=== PATIENT | male | born 1940 | race Caucasian/White ===

== ENCOUNTER 2016-11-26 21:21 | Emergency (ER) | payer MEDICARE, MEDICAID ==
--- NOTE | 2016-11-26 21:27 | ED Physician Chart ---
Chief Complaint/HPI - Patient Information Date Seen:: 11/26/16 Time Seen:: 21:26 Chief Complaint:: EtOH intoxication History of Present Illness:: 76-year-old male, well-known to this emergency room and other local emergency departments in the area, brought in by EMS with acute, mild to moderate, EtOH intoxication that was discovered about 20 minutes prior to arrival. Patient was loitering in the front of the grocery store. Has associated increased hunger. Allergies:: Allergies Allergy/AdvReac Type Severity Reaction Status Date / Time No Known Allergies Allergy Verified 05/12/16 19:57 Historian:: Patient, EMS Review:: Nurse's Note Reviewed, EMS run form Reviewed Review of Systems - Review of Systems Other: Complete system review otherwise unremarkable except as noted in HPI. Past Medical History - Past Medical History Past Medical History: No significant medical hx Family History: None Social History: Non Smoker, Alcohol, Illicit Drug Use, Homeless Surgical History: None Psychiatricy History: None Medication: None Family Medical History - Family Member Mother History Unknown: Yes Physical Exam - Physical Examination Other:: INITIAL VITAL SIGNS: Reviewed by me GENERAL: Alert and interactive. Disheveled. HEAD: Head is normocephalic and atraumatic EYES: EOMI. . No scleral icterus. No conjunctival injection ENT: Moist mucous membranes. NECK: Supple. No masses. Full range of motion RESPIRATORY: No tachypnea. Clear breath sounds bilaterally. No wheezing, rales, or rhonchi CV: Regular rate and rhythm. No murmurs, rubs, or gallops ABDOMEN: Soft, non-distended, non-tender. No guarding. No rebound. No masses. EXTREMITIES: No deformity. No cyanosis. No edema. SKIN: Warm and dry. No obvious rashes. NEUROLOGIC: Alert and oriented. Face is symmetric. Speech is normal. Moves all extremities equally. Motor and sensory distally intact. ED Septic Shock - . Is Septic Shock (SBP<90, OR Lactate>4 mmol\L) present?: No Reassessment (Disposition) - Reassessment Reassessment:: The patient's blood pressure was elevated (>120/80) but appears stable without evidence of hypertensive emergency or urgency. The patient was counseled about the risks hypertension urged to pursue outpatient monitoring and therapy within a week with her primary care physician. Patient was alert and oriented 4. He was fed. He was ambulating without any obvious gait abnormalities. His noted to be walking to and from the restroom many times any gait abnormalities. Patient ate a full meal. Wanted to leave. Discharged. Follow-up with [facility] clinic or PCP 1-2 days. Gave return to ER precautions. Patient says he understands and agrees with the plan. - Diagnosis Diagnosis:: EtOH intoxication Pre-hypertension - Aftercare/Follow up Instructions Aftercare/Follow-Up Instructions:: Counseled pt regarding lab results/diagnosis & need follow up, Refer to Discharge Instructions - Patient Disposition Discharge/Transfer:: Home Time:: 21:32 Condition at Disposition:: Improved ED Discharge Plan - Patient Disposition Admit/Discharge/Transfer: PT DISCHARGED HOME Condition at Disposition: Improved Instructions: Alcohol Intoxication, [id number]
== END 2016-11-26 22:09 | disposition home or self-care (01) ==
LOC: ER 21:21
DX: F10.129 Alcohol abuse with intoxication, unspecified (principal); Z59.0 Homelessness
CPT/HCPCS: Z7502

== ENCOUNTER 2016-12-13 21:36 | Emergency (ER) | payer MEDICARE, MEDICAID ==
--- NOTE | 2016-12-13 21:41 | ED Physician Chart ---
Chief Complaint/HPI - Patient Information Date Seen:: 12/13/16 Time Seen:: 21:37 Chief Complaint:: alcohol intoxication History of Present Illness:: 36-year-old male well known to this emergency department another local emergency departments brought in by EMS with acute, moderate, alcohol intoxication. Has associated loitering in public. History limited patient is somewhat uncooperative History provided by EMS and EMS run sheet Allergies:: Allergies Allergy/AdvReac Type Severity Reaction Status Date / Time No Known Allergies Allergy Verified 11/26/16 21:44 Historian:: Patient, EMS Review:: Nurse's Note Reviewed, EMS run form Reviewed, Transfer documents Reviewed Review of Systems - Review of Systems Other: Complete system review otherwise unremarkable except as noted in HPI. Past Medical History - Past Medical History Past Medical History: No significant medical hx Family History: None Social History: Non Smoker, Alcohol, No Drug Use, Homeless Surgical History: None Psychiatricy History: None Medication: None Family Medical History - Family Member Mother History Unknown: Yes Physical Exam - Physical Examination Other:: INITIAL VITAL SIGNS: Reviewed by me GENERAL: Alert and interactive, mostly uncooperative. No acute distress HEAD: Head is normocephalic and atraumatic EYES: EOMI. . No scleral icterus. No conjunctival injection ENT: Moist mucous membranes. NECK: Supple. No masses. Full range of motion RESPIRATORY: No tachypnea. Clear breath sounds bilaterally. No wheezing, rales, or rhonchi CV: Regular rate and rhythm. No murmurs, rubs, or gallops ABDOMEN: Soft, non-distended, non-tender. No guarding. No rebound. No masses. EXTREMITIES: No deformity. No cyanosis. No edema. SKIN: Warm and dry. No obvious rashes. NEUROLOGIC: Alert and oriented. Face is symmetric. Speech is normal. Moves all extremities equally. Motor and sensory distally intact. ED Septic Shock - . Is Septic Shock (SBP<90, OR Lactate>4 mmol\L) present?: No Reassessment (Disposition) - Reassessment Reassessment:: The patient's blood pressure was elevated (>120/80) but appears stable without evidence of hypertensive emergency or urgency. The patient was counseled about the risks hypertension urged to pursue outpatient monitoring and therapy within a week with her primary care physician. Patient initially brought in for alcohol intoxication and loitering in public. Patient has been seen here many times typically the patient will leave and won' t sign any paperwork when he leaves. Decided that he's done being in the emergency department. This time was no different. Patient ambulated to and from from restroom without any gait abnormalities. Discussed with patient to follow-up with [facility] clinic. Gave return to ER precautions. Patient understands and agrees the plan. Reassessment Condition:: Improved - Diagnosis Diagnosis:: EtOH intoxication Elevated blood pressure without the diagnosis of hypertension - Aftercare/Follow up Instructions Aftercare/Follow-Up Instructions:: Counseled pt regarding lab results/diagnosis & need follow up, Refer to Discharge Instructions - Patient Disposition Discharge/Transfer:: Home Condition at Disposition:: Improved ED Discharge Plan - Patient Disposition Admit/Discharge/Transfer: PT DISCHARGED HOME Condition at Disposition: Improved Instructions: Alcohol Intoxication, [id number]
== END 2016-12-14 03:30 | disposition home or self-care (01) ==
LOC: ER 21:36
DX: F10.129 Alcohol abuse with intoxication, unspecified (principal); R03.0 Elevated blood-pressure reading, without diagnosis of hypertension; Z59.0 Homelessness
CPT/HCPCS: Z7502

== ENCOUNTER 2016-12-23 13:50 | Emergency (ER) | payer MEDICARE, MEDICAID ==
--- NOTE | 2016-12-23 13:56 | ED Physician Chart ---
Chief Complaint/HPI - Patient Information Date Seen:: 12/23/16 Time Seen:: 13:50 Chief Complaint:: EtOH intoxication History of Present Illness:: 76-year-old male brought in by EMS, well known to this emergency department and another local emergency departments, brought in with acute, mild to moderate, alcohol intoxication since 30 minutes prior to arrival. Patient had associated loitering on private property. Patient was loitering in front of a business, business labor relations worker called police. Allergies:: Allergies Allergy/AdvReac Type Severity Reaction Status Date / Time No Known Allergies Allergy Verified 12/13/16 21:41 Historian:: Patient, EMS Review:: Nurse's Note Reviewed, EMS run form Reviewed Review of Systems - Review of Systems Other: Complete system review otherwise unremarkable except as noted in history of present illness. Past Medical History - Past Medical History Past Medical History: Other (alcohol abuse) Family History: None Social History: Non Smoker, Alcohol, No Drug Use, Homeless Surgical History: None Psychiatricy History: None Medication: None Family Medical History - Family Member Mother History Unknown: Yes Ethnicity: Physical Exam - Physical Examination Other:: INITIAL VITAL SIGNS: Reviewed by me GENERAL: Alert and interactive. Disheveled. No acute distress HEAD: Head is normocephalic and atraumatic EYES: EOMI. PERRL. No scleral icterus. No conjunctival injection ENT: Moist mucous membranes. NECK: Supple. No masses. Full range of motion RESPIRATORY: No tachypnea. Clear breath sounds bilaterally. No wheezing, rales, or rhonchi CV: Regular rate and rhythm. No murmurs, rubs, or gallops ABDOMEN: Soft, non-distended, non-tender. No guarding. No rebound. No masses. EXTREMITIES: No deformity. No cyanosis. No edema. SKIN: Warm and dry. No obvious rashes. NEUROLOGIC: Alert and oriented. Face is symmetric. Speech is normal. Moves all extremities equally. Motor and sensory distally intact. ED Septic Shock - . Is Septic Shock (SBP<90, OR Lactate>4 mmol\L) present?: No Reassessment (Disposition) - Reassessment Reassessment:: This patient is ambulating to and from the restroom and throughout the emergency department without any gait abnormalities. He received Zofran for nausea. Also drank a Coca-Cola. At that point the patient decided he was finished with his emergency department stay and was relieved. There was no appreciable emergent medical condition that needed treatment at that point. Patient was discharged. Follow up in the free clinic or with a primary care physician within one to 2 days was advised. Return to ER precautions are given. The patient gestured that he understand and agree with the plan. Reassessment Condition:: Improved - Diagnosis Diagnosis:: Alcohol abuse Alcoholic gastritis Elevated blood pressure without the diagnosis hypertension - Aftercare/Follow up Instructions Aftercare/Follow-Up Instructions:: Counseled pt regarding lab results/diagnosis & need follow up, Refer to Discharge Instructions - Patient Disposition Discharge/Transfer:: Home Time:: 14:02 Condition at Disposition:: Improved ED Discharge Plan - Patient Disposition Admit/Discharge/Transfer: PT DISCHARGED HOME Condition at Disposition: Improved Instructions: Alcohol Problems
== END 2016-12-23 15:04 | disposition home or self-care (01) ==
LOC: ER 13:50
DX: K29.20 Alcoholic gastritis without bleeding (principal); F10.10 Alcohol abuse, uncomplicated; R03.0 Elevated blood-pressure reading, without diagnosis of hypertension; Z59.0 Homelessness
CPT/HCPCS: 99283; Q0162; Z7502

== ENCOUNTER 2016-12-25 17:49 | Emergency (ER) | payer MEDICARE, MEDICAID ==
--- NOTE | 2016-12-25 18:36 | ED Physician Chart ---
Chief Complaint/HPI - Patient Information Date Seen:: 12/25/16 Time Seen:: 18:34 Chief Complaint:: etoh History of Present Illness:: pt brought in for public intoxication. denies acute injury or illness. he is a chronic etohic well known to this and local er's. he usually elopes before deluna is complete. ortiz can give me no explanation as to why he is still drinking so much/often. he speaks mainly omani. no si, no hi. Allergies:: Allergies Allergy/AdvReac Type Severity Reaction Status Date / Time No Known Allergies Allergy Verified 12/13/16 21:41 Vitals:: Vital Signs - 8 hr 12/25/16 18:25 Temp 97.8 F HR 75 RR 16 BP 122/55 O2 Sat % 97 Historian:: Patient Review of Systems - Review of Systems General/Constitutional: No fever, No chills, No weight loss, No weakness, No diaphoresis, No edema, No loss of appetite Skin: No skin lesions, No rash, No bruising Head: No headache, No light-headedness Eyes: No loss of vision, No pain, No diplopia ENT: No earache, No nasal drainage, No sore throat, No tinnitus Neck: No neck pain, No swelling, No thyromegaly, No stiffness, No mass noted Cardio Vascular: No chest pain, No palpitations, No PND, No orthopnea, No edema Pulmonary: No SOB, No cough, No sputum, No wheezing GI: No nausea, No vomiting, No diarrhea, No pain, No melena, No hematochezia, No constipation, No hematemesis G/U: No dysuria, No frequency, No hematuria Musculoskeletal: No bone or joint pain, No back pain, No muscle pain Endocrine: No polyuria, No polydipsia Psychiatric: No prior psych history, No depression, No anxiety, No suicidal ideation, Other (etohic) Hematopoietic: No bruising, No lymphadenopathy Allergic/Immuno: No urticaria, No angioedema Neurological: No syncope, No focal symptoms, No weakness, No paresthesia, No headache, No seizure, No dizziness, No confusion, No vertigo Past Medical History - Past Medical History Past Medical History: No significant medical hx, Other (etohic) Social History: Alcohol Medication: Reviewed Family Medical History - Family Member Mother History Unknown: Yes Ethnicity: Physical Exam - Physical Examination General/Constitutional: Awake, Well-developed, well-nourished, Alert, No distress, GCS 15, Non-toxic appearing, Ambulatory Other Gen/Cons comments:: thin male . alert ...seems in nad. no n/v. not sweaty. calm. wn/wh Head: Atraumatic Eyes: Lids, conjuctiva normal, PERRL, EOMI Skin: Nl inspection, No rash, No skin lesions, No ecchymosis, Well hydrated, No lymphadenopathy ENMT: External ears, nose nl, Nasal exam nl, Lips, teeth, gums nl Neck: Nontender, Full ROM w/o pain, No JVD, No nuchal rigidity, No bruit, No mass, No stridor Respiratory: Nl effort/Exclusion, Clear to Auscultation, No Wheeze/Rhonchi/Rales Cardio Vascular: RRR, No murmur, gallop, rubs, NL S1 S2 GI: No tenderness/rebounding/guarding, No organomegaly, No hernia, Normal BS's, Nondistended, No mass/bruits, No McBurney tenderness : No CVA tenderness Extremities: No tenderness or effusion, Full ROM, normal strength in all extremities, No edema, Normal digits & nails Neuro/Psych: Alert/oriented, DTR's symmetric, Normal sensory exam, Normal motor strength, Judgement/insight normal, Mood normal, Normal gait, No focal deficits Misc: normal gait, Normal back, No paraspinal tenderness Labs/Radiology/EKG Results - Lab Results Results: Laboratory Tests 12/25/16 12/25/16 12/26/16 18:54 18:54 04:06 WBC 4.6 L 3.9 L RBC 3.26 L 3.27 L Hgb 9.2 L D 9.0 L Hct 27.3 L D 27.2 L MCV 83.7 83.1 MCH 28.1 27.4 MCHC Differential 33.6 32.9 RDW 14.6 14.7 Plt Count 105 L D 114 L MPV 9.9 10.0 Neutrophils % 64.7 60.8 Lymphocytes % 20.5 25.8 Monocytes % 13.4 H 11.3 H Eosinophils % 0.7 0.9 Basophils % 0.7 1.2 Sodium 136 Potassium 3.8 Chloride 108 H Carbon Dioxide 22.1 Anion Gap 9.7 BUN 22 Creatinine 0.8 Est GFR ( Amer) TNP Est GFR (Non-Af Amer) TNP BUN/Creatinine Ratio 27.5 Glucose 111 H Calcium 8.7 Total Bilirubin 0.6 AST 49 H ALT 19 Alkaline Phosphatase 79 Total Protein 6.7 Albumin 3.6 L Globulin 3.1 Albumin/Globulin Ratio 1.2 Urine Opiates Screen Urine Methadone Screen Ur Barbiturates Screen Ur Tricyclics Screen Ur Phencyclidine Scrn Amphetamines Screen U Methamphetamines Scrn U Benzodiazepines Scrn U Cocaine Metab Screen U Cannabinoids Screen Ethyl Alcohol 317 H 12/26/16 12/26/16 04:06 05:00 WBC RBC Hgb Hct MCV MCH MCHC Differential RDW Plt Count MPV Neutrophils % Lymphocytes % Monocytes % Eosinophils % Basophils % Sodium Potassium Chloride Carbon Dioxide Anion Gap BUN Creatinine Est GFR ( Amer) Est GFR (Non-Af Amer) BUN/Creatinine Ratio Glucose Calcium Total Bilirubin AST ALT Alkaline Phosphatase Total Protein Albumin Globulin Albumin/Globulin Ratio Urine Opiates Screen NEGATIVE Urine Methadone Screen NEGATIVE Ur Barbiturates Screen NEGATIVE Ur Tricyclics Screen NEGATIVE Ur Phencyclidine Scrn NEGATIVE Amphetamines Screen NEGATIVE U Methamphetamines Scrn NEGATIVE U Benzodiazepines Scrn NEGATIVE U Cocaine Metab Screen NEGATIVE U Cannabinoids Screen NEGATIVE Ethyl Alcohol 65 H ED Septic Shock - . Is Septic Shock (SBP<90, OR Lactate>4 mmol\L) present?: No - <6hrs of presentation: Vital Signs: Vital Signs - 8 hr 12/25/16 18:25 Temp 97.8 F HR 75 RR 16 BP 122/55 O2 Sat % 97 Reassessment (Disposition) - Reassessment Reassessment:: pt is alert and up and walking steadily this am...wanting to leave now. his hgb has remained stable so it appears is a chronic anemia. his etoh is down to 60s. will dc now Reassessment Condition:: Improved - Diagnosis Diagnosis:: 1 etoh intoxication 2 anemia - Aftercare/Follow up Instructions Aftercare/Follow-Up Instructions:: Counseled pt regarding lab results/diagnosis & need follow up - Patient Disposition Discharge/Transfer:: Home Condition at Disposition:: Improved ED Discharge Plan - Patient Disposition Instructions: Alcohol Intoxication, [id number] Additional Instructions: STOP DRINKING ALCOHOLIC BEVERAGES!!!
[2016-12-25] MEDS ORDERED: Sodium Chloride 0.9% 1,000 ML IV ONE (18:38)
[2016-12-25 19:13] LABS: % BASOPHILS 0.7 % (0.0-2.0); % EOSINOPHILS 0.7 % (0.0-5.0); % LYMPHOCYTES 20.5 % (20.0-50.0); % MONOCYTES 13.4 % (2.0-10.0); % NEUTROPHILS 64.7 % (40.0-80.0); MEAN CELL VOLUME 83.7 fl (80-99); MEAN CORPUSCULAR HEMOGLOBIN 28.1 pg (27.0-31.0); MEAN CORPUSCULAR HGB CONC 33.6 pg (28.0-36.0); MEAN PLATELET VOLUME 9.9 fl; NEUTROPHILE ABSOLUTE 3.1 Th/cmm (1.8-8.0); RED BLOOD COUNT 3.26 Mil/cmm (3.80-5.80); RED CELL DISTRIBUTION WIDTH 14.6 % (11.5-20.0); WHITE BLOOD COUNT 4.6 Th/cmm (4.8-10.8)
[2016-12-25 19:16] LABS: ALB/GLOB RATIO 1.2 (1.0-1.8); ALKALINE PHOSPHATASE 79 U/L (34-104); ANION GAP 9.7 (7.0-16.0); BILIRUBIN,TOTAL 0.6 mg/dL (0.3-1.0); BUN - UREA NITROGEN 22 mg/dL (7-25); BUN/CREATININE RATIO 27.5; CALCIUM SERUM 8.7 mg/dL (8.6-10.3); CARBON DIOXIDE 22.1 mEq/L (21.0-31.0); CHLORIDE 108 mEq/L (98-107); CREATININE - SERUM 0.8 mg/dL (0.7-1.3); GLUCOSE 111 mg/dL (70-105); HEMATOCRIT 27.3 % (39.0-49.0); HEMOGLOBIN 9.2 gm/dL (12.6-17.4); PLATELET COUNT 105 Th/cmm (150-400); POTASSIUM SERUM 3.8 mEq/L (3.5-5.1); SGOT 49 U/L (13-39); SGPT/ALT 19 U/L (7-52); SODIUM SERUM 136 mEq/L (136-145)
[2016-12-26 04:31] LABS: % BASOPHILS 1.2 % (0.0-2.0); % EOSINOPHILS 0.9 % (0.0-5.0); % LYMPHOCYTES 25.8 % (20.0-50.0); % MONOCYTES 11.3 % (2.0-10.0); % NEUTROPHILS 60.8 % (40.0-80.0); HEMATOCRIT 27.2 % (39.0-49.0); MEAN CELL VOLUME 83.1 fl (80-99); MEAN CORPUSCULAR HEMOGLOBIN 27.4 pg (27.0-31.0); MEAN CORPUSCULAR HGB CONC 32.9 pg (28.0-36.0); NEUTROPHILE ABSOLUTE 2.5 Th/cmm (1.8-8.0); PLATELET COUNT 114 Th/cmm (150-400); RED BLOOD COUNT 3.27 Mil/cmm (3.80-5.80); RED CELL DISTRIBUTION WIDTH 14.7 % (11.5-20.0); WHITE BLOOD COUNT 3.9 Th/cmm (4.8-10.8)
[2016-12-26 05:38] LABS: AMPHETAMINE URINE NEGATIVE (NEGATIVE); BARBITURATES URINE NEGATIVE (NEGATIVE); METHADONE URINE NEGATIVE (NEGATIVE)
== END 2016-12-26 06:30 | disposition home or self-care (01) ==
LOC: ER 17:49
DX: F10.129 Alcohol abuse with intoxication, unspecified (principal); D64.9 Anemia, unspecified
CPT/HCPCS: 99284; 96374; 80307; 36415 ×2; 85025 ×2; 80320 ×2; 80053; J2405; J7030; Z7502

== ENCOUNTER 2017-02-24 11:34 | Emergency (ER) | payer MEDICARE, MEDICAID ==
--- NOTE | 2017-02-24 11:47 | ED Physician Chart ---
Chief Complaint/HPI - Patient Information Date Seen:: 02/24/17 Time Seen:: 11:45 Chief Complaint:: Abdominal Pain History of Present Illness:: Onset x 2 days of diffuse, intermittent, crampy Abdominal Pain; no A/N/V/D/C, fever, chills, C/P, SOB, melena, hematemesis, hematochezia, cough, hemoptysis, LOC, ALOC, H/As, vertigo; pt found on the street laying down and brought in by EMS; Hx of ETOH Abuse Allergies:: Allergies Allergy/AdvReac Type Severity Reaction Status Date / Time No Known Allergies Allergy Verified 12/13/16 21:41 Historian:: Patient, EMS, Medical Records Review:: Nurse's Note Reviewed, Old Chart Reviewed, EMS run form Reviewed, Transfer documents Reviewed Review of Systems - Review of Systems General/Constitutional: Fever, Chills, No weight loss, Weakness, No diaphoresis , No edema, No loss of appetite Skin: No skin lesions, No rash, No bruising Head: No headache, No light-headedness Eyes: No loss of vision, No pain, No diplopia ENT: No earache, Nasal drainage, No sore throat, No tinnitus Neck: No neck pain, No swelling, No thyromegaly, No stiffness, No mass noted Cardio Vascular: No chest pain, Palpitations, No PND, No orthopnea, No edema Pulmonary: No SOB, Cough, No sputum, No wheezing GI: Nausea, Vomiting, Diarrhea, Pain, No melena, No hematochezia, No constipation, No hematemesis G/U: No dysuria, No frequency, No hematuria Musculoskeletal: No bone or joint pain, No back pain, No muscle pain Endocrine: No polyuria, No polydipsia Psychiatric: No prior psych history, No depression, No anxiety, No suicidal ideation Hematopoietic: No bruising, No lymphadenopathy Allergic/Immuno: No urticaria, No angioedema Neurological: No syncope, No focal symptoms, Weakness, No paresthesia, No headache, No seizure, No dizziness, No confusion, No vertigo Past Medical History - Past Medical History Past Medical History: HTN, Arthritis Family History: HTN Social History: Smoker, Alcohol, No Drug Use, Single Surgical History: None Psychiatricy History: None Medication: Reviewed Family Medical History - Family Member Mother History Unknown: Yes Ethnicity: Physical Exam - Physical Examination General/Constitutional: Awake, Well-developed, well-nourished, Alert, No distress, GCS 15, Non-toxic appearing, Ambulatory Head: Atraumatic Eyes: Lids, conjuctiva normal, PERRL, EOMI Skin: Nl inspection, No rash, No skin lesions, No ecchymosis, Well hydrated, No lymphadenopathy ENMT: External ears, nose nl, Nasal exam nl, Lips, teeth, gums nl Neck: Nontender, Full ROM w/o pain, No JVD, No nuchal rigidity, No bruit, No mass, No stridor Respiratory: Nl effort/Exclusion, Clear to Auscultation, No Wheeze/Rhonchi/Rales Cardio Vascular: RRR, No murmur, gallop, rubs, NL S1 S2 GI: No tenderness/rebounding/guarding, No organomegaly, No hernia, Normal BS's, Nondistended, No mass/bruits, No McBurney tenderness : No CVA tenderness Extremities: No tenderness or effusion, Full ROM, normal strength in all extremities, No edema, Normal digits & nails Neuro/Psych: Alert/oriented, DTR's symmetric, Normal sensory exam, Normal motor strength, Judgement/insight normal, Mood normal, Normal gait, No focal deficits Misc: normal gait, Normal back, No paraspinal tenderness Labs/Radiology/EKG Results - Lab Results Results: ETOH: 286; K+: 3.1 - Radiology Results Results: CXR: CM; NAD - EKG Interpretations EKG Time:: 11:47 Rate & Rhythm: 98; NSR [place]: LAD; LVH Comments:: non-specific st-t changes ED Septic Shock - . Is Septic Shock (SBP<90, OR Lactate>4 mmol\L) present?: No
[2017-02-24] MEDS ORDERED: Sodium Chloride 0.9% 1,000 ML IV ONE (11:49)
[2017-02-24 12:10] LABS: % BASOPHILS 0.5 % (0.0-2.0); % LYMPHOCYTES 17.2 % (20.0-50.0); % MONOCYTES 5.9 % (2.0-10.0); % NEUTROPHILS 74.4 % (40.0-80.0); MEAN CELL VOLUME 84.4 fl (80-99); MEAN CORPUSCULAR HGB CONC 34.4 pg (28.0-36.0); MEAN PLATELET VOLUME 10.1 fl; NEUTROPHILE ABSOLUTE 5.6 Th/cmm (1.8-8.0); PLATELET COUNT 95 Th/cmm (150-400); RED BLOOD COUNT 3.81 Mil/cmm (3.80-5.80); RED CELL DISTRIBUTION WIDTH 14.1 % (11.5-20.0)
[2017-02-24 12:18] LABS: HEMATOCRIT 32.2 % (39.0-49.0); HEMOGLOBIN 11.1 gm/dL (12.6-17.4); WHITE BLOOD COUNT 7.4 Th/cmm (4.8-10.8)
[2017-02-24 12:21] LABS: INR 0.96 (0.5-1.4)
[2017-02-24 12:29] LABS: TROP I 0.02 ng/mL (0.01-0.05)
[2017-02-24 12:30] LABS: ALB/GLOB RATIO 1.7 (1.0-1.8); ALKALINE PHOSPHATASE 84 U/L (34-104); ANION GAP 11.7 (7.0-16.0); BILIRUBIN,TOTAL 0.8 mg/dL (0.3-1.0); BUN - UREA NITROGEN 15 mg/dL (7-25); CALCIUM SERUM 8.7 mg/dL (8.6-10.3); CARBON DIOXIDE 20.4 mEq/L (21.0-31.0); CHLORIDE 111 mEq/L (98-107); CHOLESTEROL 180 mg/dL (<200); CREATININE - SERUM 0.5 mg/dL (0.7-1.3); GLUCOSE 94 mg/dL (70-105); POTASSIUM SERUM 3.1 mEq/L (3.5-5.1); SGOT 34 U/L (13-39); SGPT/ALT 19 U/L (7-52); SODIUM SERUM 140 mEq/L (136-145); TRIGLYCERIDES 126 mg/dL (<150)
[2017-02-24 12:35] LABS: AMYLASE SERUM 25 U/L (29-103); LIPASE 11 U/L (11-82)
[2017-02-24 12:43] LABS: BNP 29.2 pg/mL (5.0-100.0)
[2017-02-24 12:53] LABS: CREATINE KINASE MB 3.1 ng/mL (0.6-6.3)
--- NOTE | 2017-02-24 12:53 | Diagnostic Imaging Report ---
Portable chest x-ray HISTORY: Shortness of breath There is a poor inspiration. The heart appears somewhat enlarged. Atherosclerotic calcification seen in the aorta. Allowing for the poor inspiration, no acute focal pulmonary processes are seen. Degenerative changes seen throughout the spine. IMPRESSION: 1. Allowing for a poor inspiration, no acute focal pulmonary processes 2. Cardiomegaly with atherosclerotic vascular changes
[2017-02-24] MEDS ORDERED: Multivitamin Inj 10 ML, Thiamine HCL 100 MG, Magnesium Sulfate 2 GM, Folic Acid 1 MG in... IV ONE (14:45)
[2017-02-24] MEDS ORDERED: Potassium Chloride 20 mEq ER Tab PO ONE (14:48)
[2017-02-24] MEDS: Potassium Chloride 20 mEq ER Tab PO ONE ×2 (14:49→14:54)
== END 2017-02-24 14:56 | disposition left against medical advice (07) ==
LOC: ER 11:34
DX: R10.84 Generalized abdominal pain (principal); F10.10 Alcohol abuse, uncomplicated; I10 Essential (primary) hypertension; F17.200 Nicotine dependence, unspecified, uncomplicated
CPT/HCPCS: 36415-UA; 71010-TC; 80053-TC; 80061-TC; 80320-TC; 82150-TC; 82550-TC; 82553; 83690-TC; 83880-TC; 84484-TC; 85025-TC; 85610-TC; 93005; 94760; J7030; Z7610

== ENCOUNTER 2017-03-09 12:06 | Emergency (ER) | payer MEDICARE, MEDICAID ==
--- NOTE | 2017-03-09 12:29 | ED Physician Chart ---
Chief Complaint/HPI - Patient Information Date Seen:: 03/09/17 Time Seen:: 12:20 Chief Complaint:: Pt is intoxicated with alcohol. History of Present Illness:: Brought in by ambulance because pt was found to be intoxicated with alcohol in the public. Pt is Marshallese speaking. Interpretation is provided by my nurse Mr. Josias Cortes. Pt denies any bodily pain or discomfort. H & P are limited because pt is not fully cooperative. Allergies:: Allergies Allergy/AdvReac Type Severity Reaction Status Date / Time No Known Allergies Allergy Verified 12/13/16 21:41 Vitals:: Vital Signs - 8 hr 03/09/17 12:17 Temp 99.0 F HR 97 RR 16 BP 137/67 O2 Sat % 100 Historian:: Patient Family MD/PCP:: unknown LMP:: N/A Review:: Nurse's Note Reviewed Review of Systems - Review of Systems General/Constitutional: Other (Pt denies any bodily pain or discomfort. Pt does not cooperate for ROS.) Past Medical History - Past Medical History Past Medical History: Other (Denies chronic medical conditions.) Family History: None Social History: Non Smoker, Alcohol, No Drug Use, Other (Pt does not cooperate to provide additional info on SHx.) Surgical History: Cholecystectomy (about 11 y/a.) Psychiatricy History: None Medication: None, Reviewed Family Medical History - Family Member Mother History Unknown: Yes Ethnicity: Physical Exam - Physical Examination General/Constitutional: Awake, Well-developed, well-nourished, Alert, No distress, Ambulatory Other Gen/Cons comments:: Speaks clearly with strong alcoholic breath. Head: Atraumatic Eyes: Lids, conjuctiva normal, PERRL, EOMI Skin: Nl inspection, No rash, No skin lesions, No ecchymosis, Well hydrated, No lymphadenopathy ENMT: External ears, nose nl, Nasal exam nl, Oropharynx nl Neck: Nontender, Full ROM w/o pain, No JVD, No nuchal rigidity, No mass, No stridor Respiratory: Nl effort/Exclusion, Clear to Auscultation, No Wheeze/Rhonchi/Rales Cardio Vascular: RRR, No murmur, gallop, rubs GI: No tenderness/rebounding/guarding, No organomegaly, No hernia, Normal BS's, Nondistended, No mass/bruits Other GI comments:: Abdomen is soft. Extremities: No edema Neuro/Psych: Alert/oriented (knows his name, that he is in a hospital and it is March.), No focal deficits Other Neuro/Psych comments:: Spontaneous movements noticed in all 4 extremities. Pt does not cooperate for full neurological exam. ED Septic Shock - . Is Septic Shock (SBP<90, OR Lactate>4 mmol\L) present?: No - <6hrs of presentation: Vital Signs: Vital Signs - 8 hr 03/09/17 12:17 Temp 99.0 F HR 97 RR 16 BP 137/67 O2 Sat % 100 Reassessment (Disposition) - Reassessment Reassessment:: 1245 I was informed by nursing staff that pt got up and walked out of the ER steadily and swiftly. Pt eloped without completion of ER visit. Marylu DHILLON was notified regarding pt's elopement per Marylu DHILLON. - Diagnosis Diagnosis:: Alcohol intoxication, stable. - Patient Disposition Discharge/Transfer:: Elope/AWOL Time:: 12:30 Condition at Disposition:: Stable ED Discharge Plan - Patient Disposition Admit/Discharge/Transfer: PATIENT ELOPED Condition at Disposition: Stable
[2017-03-09] MEDS ORDERED: Multivitamin Inj 10 ML, Thiamine HCL 100 MG, Magnesium Sulfate 2 GM, Folic Acid 1 MG in... IV ONE (12:30)
== END 2017-03-09 12:51 | disposition left against medical advice (07) ==
LOC: ER 12:06
DX: F10.129 Alcohol abuse with intoxication, unspecified (principal)
CPT/HCPCS: Z7502